=== PATIENT | female | born 1945 | race Caucasian/White ===

== ENCOUNTER 2016-09-10 14:38 | Emergency (ER) | payer MEDICARE, OTHER | END 2016-09-10 16:57 | disposition home or self-care (01) | LOC: ER1 14:38 | DX: J06.9 Acute upper respiratory infection, unspecified (principal); E11.9 Type 2 diabetes mellitus without complications; Z79.84 Long term (current) use of oral hypoglycemic drugs | CPT/HCPCS: 71020; 87081; 87880; 99283 ==

== ENCOUNTER → 2016-10-05 | Outpatient (CLI) | payer MEDICARE, OTHER | LOC: CT 09-22 14:30 → KOH-I 14:28 → CT 14:30 | DX: R93.8 Abnormal findings on diagnostic imaging of other specified body structures (principal); R91.1 Solitary pulmonary nodule | CPT/HCPCS: 71250 ==

== ENCOUNTER → 2016-12-15 | Outpatient (CLI) | payer MEDICARE, OTHER | LOC: MAMO 11-28 11:20 | DX: Z12.31 Encounter for screening mammogram for malignant neoplasm of breast (principal); M54.2 Cervicalgia; Z90.710 Acquired absence of both cervix and uterus; M47.892 Other spondylosis, cervical region | CPT/HCPCS: 72050; G0202 ==

== ENCOUNTER → 2016-12-18 | Outpatient (CLI) | payer MEDICARE, OTHER | LOC: RAD 11-22 08:00 → US 11-22 08:30 → RAD 11-30 09:30 → US 11-30 10:00 → RAD 12-01 08:00 | DX: R13.10 Dysphagia, unspecified (principal); K22.4 Dyskinesia of esophagus; R80.9 Proteinuria, unspecified; E04.2 Nontoxic multinodular goiter | CPT/HCPCS: 74220; 76536 ==